=== PATIENT | male | born 1980 | race African-American/Black ===

== ENCOUNTER 2022-04-12 11:19 | Emergency (ER) | payer MEDICAID ==
[~2022-04-12] VITALS: Ht 172.7 cm; Wt 99.0 kg
[2022-04-12] MEDS ORDERED: TETANUS, DIPHTHERIA, PERTUSSIS VAC/PF 0.5ML (>10YR OLD) IM ONE (16:45)
[2022-04-12] MEDS ORDERED: FLUORESCEIN SODIUM 1MG/STRIP RIGHTEYE ONE (16:45)
[2022-04-12] MEDS ORDERED: ACETAMINOPHEN 325MG TABLET PO ONE (16:45)
[2022-04-12] MEDS ORDERED: IBUPROFEN 400MG TABLET PO ONE (16:45)
[2022-04-12] MEDS ORDERED: BACITRACIN ZINC OINT UDPKT TOP ONE (18:15)
[2022-04-12] MEDS ORDERED: CIPR5DRO RIGHTEYE (18:54)
[2022-04-12] MEDS ORDERED: ACET-2708 MT (18:55)
[2022-04-12] MEDS ORDERED: AMOX1TAB16 MT (18:55)
[2022-04-12 19:58] VITALS: BP 160/90
== END 2022-04-12 20:25 | disposition home or self-care (01) ==
LOC: ER 11:19
DX: S71.152A Open bite, left thigh, initial encounter (principal); R51.9 Headache, unspecified; H11.31 Conjunctival hemorrhage, right eye; W54.0XXA Bitten by dog, initial encounter; Y93.89 Activity, other specified; Y92.89 Other specified places as the place of occurrence of the external cause; Y99.8 Other external cause status
CPT/HCPCS: 90471; 90715; 99284